=== PATIENT | female | born 1965 | race Caucasian/White ===

== ENCOUNTER 2019-05-20 21:04 | Emergency (ER) | payer OTHER ==
[~2019-05-20] VITALS: Ht 160 cm; Wt 55.0 kg
[2019-05-20 21:06] VITALS: Ht 160 cm; Wt 55.0 kg
[2019-05-20] MEDS ORDERED: AUGMENTIN 875-11 TAB PO (22:19)
[2019-05-20] MEDS ORDERED: HYDROCODON-ACE1 EAC2 PO (22:19)
[2019-05-20 22:31] VITALS: BP 132/75
== END 2019-05-20 22:31 | disposition home or self-care (01) ==
LOC: D.ER 21:04
DX: S41.112A Laceration without foreign body of left upper arm, initial encounter (principal); S41.111A Laceration without foreign body of right upper arm, initial encounter; W54.0XXA Bitten by dog, initial encounter; Y93.89 Activity, other specified; Y92.019 Unspecified place in single-family (private) house as the place of occurrence of the external cause